=== PATIENT | male | born 1970 | race Two or more races ===

== ENCOUNTER 2024-11-22 01:55 | Emergency (ER) | payer OTHER ==
[~2024-11-22] VITALS: Ht 188 cm; Wt 81.6 kg
[2024-11-22 02:00] VITALS: BP 137/79; O2SAT 95
[2024-11-22] MEDS ORDERED: ORPHENADRINE CITRATE 30 MG/ML AMPUL IM STA (02:37)
[2024-11-22] MEDS ORDERED: KETO10TA2 PO (02:47)
== END 2024-11-22 03:34 ==
LOC: ER 01:55
DX: S46.811A Strain of other muscles, fascia and tendons at shoulder and upper arm level, right arm, initial encounter (principal); X58.XXXA Exposure to other specified factors, initial encounter; Y93.89 Activity, other specified; Y92.59 Other trade areas as the place of occurrence of the external cause; Y99.8 Other external cause status